=== PATIENT | female | born 1970 | race Caucasian/White ===

== ENCOUNTER 2017-10-04 23:54 | Observation (INO) | payer BC ==
[2017-10-05] MEDS ORDERED: Famotidine 20 MG/2 ML SDV IVPUSH ONE (00:17)
[2017-10-05] MEDS ORDERED: Metoprolol Tartrate 5 MG/5 ML SDV IVPUSH ONE (00:17)
--- NOTE | 2017-10-05 00:17 | EDM.PDOC ---
ED HPI GENERAL MEDICAL PROBLEM - General Chief Complaint: General Stated Complaint: irregular heartbeat Time Seen by Provider: 10/05/17 00:10 Source of Information: Reports: Patient, Family (), Old Records ([facility] chart/EMR) History Limitations: Reports: No Limitations - History of Present Illness INITIAL COMMENTS - FREE TEXT/NARRATIVE: The patient was brought to the emergency room via private automobile by her for evaluation of intermittent heart flutter symptoms starting at about 15:00 hours yesterday afternoon. The patient denies any chest pain/pressure, dizziness, orthostasis, orthopnea, diaphoresis, paresthesias, recent decreased exercise tolerance, or any other anginal-type symptoms. She denies any recent excessive caffeine intake, use of OTC cold preparations, etc. No recent history of abdominal pain, heartburn, nausea, diarrhea, melena, gross hematochezia, or any food intolerance, including fatty foods, etc.. No history of gross hematuria , colic, or other UTI symptoms. The patient also denies any recent fever, cough , wheezing, dyspnea, etc.. No history of recent headaches, visual changes, diplopia, change in mental status, or other change in neurological status. She denies any pain or discomfort. 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 Denies: Allergic Rhinitis, Cataract, Glaucoma, Hard of Hearing, Macular Degeneration, Retinal Detachment Other HEENT History: Patient wears glasses and soft contact lenses. Cardiovascular History: Reports: None. Denies: Afib, Aneurysm, Arrhythmia, Blood Clots/VTE/DVT, CAD, Heart Murmur, High Cholesterol, Hypertension, Syncope Respiratory History: Reports: None. Denies: Asthma, Bronchitis, Recurrent, COPD , Intubation, Difficult, Intubation, Previous, PE, Pneumothorax, Sleep Apnea Gastrointestinal History: Reports: None. Denies: Celiac Disease, Cholelithiasis , Chronic Constipation, Chronic Diarrhea, Fecal Incontinence, GERD, GI Bleed, Hiatal Hernia, Inflammatory Bowel Disease, Irritable Bowel Syndrome, PUD Genitourinary History: Reports: None. 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 Borderline hypertension during one of her pregnancies. C-sections 2 secondary to failure to progress. Musculoskeletal History: Reports: Fracture, Other (See Below). Denies: Amputation, Arthritis, Back Pain, Chronic, Gout, Neck Pain, Chronic, Osteoarthritis, Osteoporosis, RA, SLE Other Musculoskeletal History: Comminuted left wrist fracture on 12/24/15 Neurological History: Reports: None. Denies: Cerebral Aneurysms, Concussion, CVA, Headaches, Chronic, Head Trauma, Migraines, MS, Parkinson's, Seizure, TIA Psychiatric History: Reports: None. Denies: Abuse, Victim of, ADD, ADHD, Addiction, Anxiety, Depression, Psych Hospitalization(s), PTSD, Suicide Attempt , Suicidal Ideation Endocrine/Metabolic History: Reports: None. Denies: Diabetes, Gestational, Diabetes, Type I, Diabetes, Type II, Diabetes Mellitus, Type 3c, Hypothyroidism , IDDM Hematologic History: Reports: None. Denies: Anemia, Blood Transfusion(s), Iron Deficiency Immunologic History: Reports: None. Denies: AIDS, HIV, SLE Oncologic (Cancer) History: Reports: None. Denies: Basal Cell Carcinoma, Cervix , Hodgkin's Lymphoma, Leukemia, Lymphoma, Malignant Melanoma, Non-Hodgkin's Lymphoma, Squamous Cell Carcinoma Dermatologic History: Reports: None. Denies: Eczema, Psoriasis - Infectious Disease History Infectious Disease History: Reports: Chicken Pox, Mononucleosis (At age 19), Other (See Below) (Rabies exposure on 07/09/12). Denies: C-Difficile, Measles, Meningitis, MRSA, Mumps, Pertussis (Whooping Cough), Rheumatic Fever, Rubella, Scarlet Fever, Shingles, VRE - Past Surgical History Head Surgeries/Procedures: Reports: None HEENT Surgical History: Reports: Oral Surgery, Other (See Below). Denies: Adenoidectomy, Eye Surgery, Laser Surgery, LASIK, Myringotomy w Tube(s), Naso- Sinus Surgery, Tonsillectomy Other HEENT Surgeries/Procedures: Teague teeth extraction 4 at age 19. Cardiovascular Surgical History: Reports: None. Denies: Varicose Respiratory Surgical History: Reports: None. Denies: Thoracentesis GI Surgical History: Reports: None. Denies: Appendectomy, Cholecystectomy, Colonoscopy, EGD, Hernia, Abdominal, Hernia, Inguinal, Hernia Repair/Other Female Surgical History: Reports: Breast Biopsy, Section, Other ( See Below). Denies: D&C, Tubal Ligation Other Female Surgeries/Procedures: C-sections 2 as above. Endocrine Surgical History: Reports: None. Denies: Thyroid Biopsy Neurological Surgical History: Reports: None. Denies: C-Spine, Discectomy, Laminectomy, Lumbar Spine, Sacral Spine, Spinal Fusion, Thoracic Spine, Vertebroplasty Musculoskeletal Surgical History: Reports: ORIF, Other (See Below). Denies: Arthroscopic Procedure, Carpal Tunnel, Ganglion Cyst, Joint Replacement, Shoulder Surgery Other Musculoskeletal Surgeries/Procedures:: ORIF of left wrist fracture on . Oncologic Surgical History: Reports: None Dermatological Surgical History: Reports: None - Past Imaging History Past Imaging History: Reports: Ultrasound (OB ultrasounds. Right upper quadrant ultrasound on 11/10/05.). Denies: Angiography, Stress Testing Social & Family History - Family History HEENT: Reports: Macular Degeneration, Other (See Below). Denies: Glaucoma, Retinal Detachment Other HEENT Family History: Paternal grandmother with macular degeneration. Cardiac: Reports: Aneurysm, High Cholesterol, Hypertension, Other (See Below). Denies: Afib, Arrhythmia, Blood Clots/VTE/DVT, Bypass, CAD, Heart Failure, NM, PVD/COD, Stent, Syncope Other Cardiac Family History: Father with hypertension and hyperlipidemia. Paternal grandfather with cerebral aneurysm. Respiratory: Reports: None. Denies: Asthma, COPD, PE, Pneumothorax, Sleep Apnea GI: Reports: Celiac Disease, Other (See Below). Denies: Cholelithiasis, Colon Polyps, GERD, GI bleed, Inflammatory Bowel Disease, Irritable Bowel Syndrome, PUD Other GI Family History: Maternal half aunts 2 with celiac disease. : Reports: None. Denies: Renal Calculus, Renal Disease/Insufficiency OBGYN: Reports: None. Denies: Endometriosis, Recurrent Spontaneous Musculoskeletal: Reports: None. Denies: Gout, RA, SLE Neurological: Reports: Cerebral Aneurysms, CVA, Other (See Below). Denies: Alzheimers Disease, Dementia, Migraines, MS, Parkinson's, Seizure, TIA Other Neurological Family History: Paternal grandfather with hemorrhagic CVA secondary to cerebral aneurysm in his 70s. Psychiatric: Denies: Abuse, Victim of, ADD, ADHD, Anxiety, Depression, Psych Hospitalization(s), PTSD, Suicide Attempt Endocrine/Metabolic: Reports: None. Denies: Diabetes, Type I, Diabetes, type II , Diabetes Mellitus, Type 3c, Hypothyroidism, IDDM Hematologic: Reports: None, Anemia. Denies: SLE Immunologic: Reports: None. Denies: AIDS, HIV, SLE Dermatologic: Reports: None. Denies: Eczema, Psoriasis Oncologic: Reports: None. Denies: Breast, Cervix, Colon, Hodgkin's Lymphoma, Leukemia, Lymphoma, Non-Hodgkin's Lymphoma, Ovarian, Skin, Uterine - Tobacco Use Smoking Status *Q: Never Smoker Tobacco Use Within Last Twelve Months: No Used Tobacco, but Quit: No Smoking Cessation Information Provided To Patient: No Second Hand Smoke Exposure: No Second Hand Smoke Education Provided: No - Caffeine Use Caffeine Use: Reports: Coffee (4 cups per day). Denies: Energy Drinks, Soda, Tea - Alcohol Use Alcohol Use History: Yes Days Per Week of Alcohol Use: 1 Number of Drinks Per Day: 2 Number of Drinks Per Day Comment: Usually beer. No previous DWIs, problems with alcohol abuse, etc. Total Drinks Per Week: 2 Alcohol Use in Last Twelve Months: Yes Alcohol Use Frequency: Weekly - Recreational Drug Use Recreational Drug Use: No Drug Use in Last 12 Months: No Recreational Drug Type: Denies: Amphetamines (Speed), Cocaine, Flunitrazepam, Heroin, Inhalants (Glues, Solvents, Aerosols), LSD (Acid), Marijuana/Hashish, Methamphetamine, Morphine, Oxycodone - Living Situation & Occupation Living situation: Reports: (1994. 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 ED EXAM, GENERAL - Physical Exam Exam: See Below Exam Limited By: No Limitations General Appearance: Alert, WD/WN, No Apparent Distress Eye Exam: Bilateral Eye: EOMI, Normal Inspection (No nystagmus. Patient wearing glasses) Ears: Normal External Exam, Normal Canal, Hearing Grossly Normal, Normal TMs Nose: Normal Inspection, Normal Mucosa, No Blood Throat/Mouth: Normal Inspection, Normal Lips, Normal Teeth, Normal Gums, Normal Oropharynx, Normal Voice, No Airway Compromise. No: Dysphagia, Perioral Cyanosis Neck: Normal Inspection, Supple, Non-Tender, Full Range of Motion. No: Lymphadenopathy (L), Lymphadenopathy (R), Thyromegaly Respiratory/Chest: No Respiratory Distress, Lungs Clear, Normal Breath Sounds, No Accessory Muscle Use, Chest Non-Tender. No: Pleural Rub, Retractions Cardiovascular: Normal Peripheral Pulses, No Edema, No Gallop, No JVD, No Murmur , No Rub, Tachycardia, Extra Beats. No: Gallop/S3, Gallop/S4 Peripheral Pulses: 2+: Radial (L), Radial (R), Dorsalis Pedis (L), Dorsalis Pedis (R) GI/Abdominal: Normal Bowel Sounds, Soft, Non-Tender, No Organomegaly, No Distention, No Abnormal Bruit, No Mass, Pelvis Stable. No: Guarding (Female) Exam: Deferred Rectal (Female) Exam: Deferred Back Exam: Normal Inspection, Full Range of Motion. No: CVA Tenderness (L), CVA Tenderness (R), Muscle Spasm Extremities: Normal Inspection, Normal Range of Motion, Non-Tender, No Pedal Edema, Normal Capillary Refill. No: Ryan's Sign Neurological: Alert, Oriented, CN II-XII Intact, Normal Cognition, Normal Gait, Normal Reflexes (Negative Babinski's), No Motor/Sensory Deficits Psychiatric: Normal Affect, Normal Mood Skin Exam: Warm, Dry, Intact, Normal Color, No Rash. No: Diaphoretic Lymphatic: No Adenopathy EKG INTERPRETATION EKG Date: 10/05/17 Time: 00:22 Rhythm: Other (Junctional rhythm with occasional PACs) Rate (Beats/Min): 124 [place]: Normal (Left cardiac axis) P-Wave: Variable QRS: Normal (QRS interval of 0.09 seconds) ST-T: Other (T-wave inversion in lead V1 with otherwise nonspecific ST changes) QT: Normal MA/PQ Interval: Variable Comparison: NA - No Prior EKG EKG Interpretation Comments: 1. Junctional rhythm with tachycardia 2. PACs 3. No acute ischemic changes Course - Vital Signs Last Recorded V/S: Last Vital Signs Temp 36.8 C 10/05/17 00:30 Pulse 76 10/05/17 00:40 Resp 16 10/05/17 00:40 BP 134/80 10/05/17 00:40 Pulse Ox 99 10/05/17 00:40 Vital Signs - 24 hr 10/05/17 10/05/17 10/05/17 00:00 00:15 00:25 Temperature [ 37.2 C Temporal] Pulse, 116 H Peripheral Pulse, 108 H 120 H Peripheral [ Right Pulse Oximetry] Respiratory 18 18 Rate Blood Pressure 104/67 Blood Pressure 151/92 H 104/67 [Left Upper Arm ] O2 Sat by Pulse 100 99 Oximetry 10/05/17 10/05/17 10/05/17 00:30 00:40 01:03 Temperature [ 36.8 C Temporal] Pulse, 79 Peripheral Pulse, 75 76 Peripheral [ Right Pulse Oximetry] Respiratory 16 16 Rate Blood Pressure 130/79 Blood Pressure 145/95 H 134/80 [Left Upper Arm ] O2 Sat by Pulse 100 99 Oximetry - Orders/Labs/Meds Orders: Active Orders 24 hr Category Date Time Status Cardiac Monitoring [RC] . DIRECTED Care 10/05/17 00:17 Active EKG Documentation Completion [RC] ASDIRECTED Care 10/05/17 00:17 Active Oxygen Therapy, ED [RC] PRN Care 10/05/17 00:17 Active Peripheral IV Care [RC] . DIRECTED Care 10/05/17 00:17 Active Pulse Oximetry [RC] PRN Care 10/05/17 00:17 Active Up With Assistance [RC] PFP Care 10/05/17 00:17 Active Vital Signs [RC] PFP Care 10/05/17 00:17 Active Nothing per Oral Now Diet [DIET] Diet 10/05/17 Breakfast Active Chest 1V Frontal [CR] Stat Exams 10/05/17 00:17 Taken Metoprolol Succinate [Toprol XL] Med 10/05/17 00:59 Once 25 mg PO ONETIME ONE Sodium Chloride 0.9% [Saline Flush] Med 10/05/17 00:17 Active 10 ml FLUSH ASDIRECTED PRN Obtain Past Medical Record [OM.PC] Urgent Oth 10/05/17 00:17 Active Peripheral IV Insertion Adult [OM.PC] Stat Oth 10/05/17 00:17 Ordered Resuscitation Status Stat Resus Stat 10/05/17 00:17 Ordered Medication Orders Metoprolol Succinate (Toprol Xl) 25 mg PO ONETIME ONE Stop: 10/05/17 01:00 Sodium Chloride (Saline Flush) 10 ml FLUSH ASDIRECTED PRN PRN Reason: Keep Vein Open Last Admin: 10/05/17 00:26 Dose: 10 ml Labs: Laboratory Tests 10/05/17 10/05/17 10/05/17 Range/Units 00:13 00:13 00:13 WBC 9.2 (4.0-10.2) K/uL RBC 4.83 (3.77-5.09) M/uL Hgb 14.5 (11.7-15.5) g/dL Hct 42.6 (34.0-46.0) % MCV 88.2 (84.0-98.0) fL MCH 30.0 (28.2-33.3) pg MCHC 34.0 (31.7-36.0) g/dL RDW 13.2 (11.2-14.1) % Plt Count 204 (150-350) K/uL Neut % (Auto) 41.7 L (45.0-80.0) % Lymph % (Auto) 49.9 (10.0-50.0) % Wheeler % (Auto) 7.0 (2.0-14.0) % Eos % (Auto) 1.2 (0.0-5.0) % Baso % (Auto) 0.2 (0.0-2.0) % Neut # (Auto) 3.82 (1.40-7.00) K/uL Lymph # (Auto) 4.58 H (0.50-3.50) K/uL Wheeler # (Auto) 0.64 (0.00-1.00) K/uL Eos # (Auto) 0.11 (0.00-0.50) K/uL Baso # (Auto) 0.02 (0.00-0.20) K/uL PT 9.8 (9.8-11.7) SEC INR 0.9 APTT 24.7 (22.1-29.8) SEC D-Dimer, Quantitative < 100 (0-400) ng/mL Sodium (136-145) mmol/L Potassium (3.5-5.1) mmol/L Chloride (98-107) mmol/L Carbon Dioxide (21.0-32.0) mmol/L BUN (7-18) mg/dL Creatinine (0.51-1.17) mg/dL Est Cr Clr Drug Dosing mL/min Estimated GFR (MDRD) mL/min Glucose (74-106) mg/dL Lactic Acid (0.4-2.0) mmol/L Uric Acid (2.6-7.2) mg/dL Calcium (8.5-10.1) mg/dL Magnesium (1.8-2.4) mg/dL Total Bilirubin (0.2-1.0) mg/dL AST (15-37) U/L ALT (12-78) U/L Alkaline Phosphatase (46-116) IU/L Creatine Kinase (26-308) U/L Creatine Kinase Index (0.0-2.5) % CK-MB (CK-2) (0.00-3.60) ng/mL Troponin I (0.000-0.056) ng/mL NT-Pro-B Natriuret Pep (0-125) pg/mL Total Protein (6.4-8.2) g/dL Albumin (3.4-5.0) g/dL TSH, Ultra Sensitive (0.358-3.740) mIU/mL HCG, Qual (NEGATIVE) 10/05/17 10/05/17 10/05/17 Range/Units 00:13 00:13 00:13 WBC (4.0-10.2) K/uL RBC (3.77-5.09) M/uL Hgb (11.7-15.5) g/dL Hct (34.0-46.0) % MCV (84.0-98.0) fL MCH (28.2-33.3) pg MCHC (31.7-36.0) g/dL RDW (11.2-14.1) % Plt Count (150-350) K/uL Neut % (Auto) (45.0-80.0) % Lymph % (Auto) (10.0-50.0) % Wheeler % (Auto) (2.0-14.0) % Eos % (Auto) (0.0-5.0) % Baso % (Auto) (0.0-2.0) % Neut # (Auto) (1.40-7.00) K/uL Lymph # (Auto) (0.50-3.50) K/uL Wheeler # (Auto) (0.00-1.00) K/uL Eos # (Auto) (0.00-0.50) K/uL Baso # (Auto) (0.00-0.20) K/uL PT (9.8-11.7) SEC INR APTT (22.1-29.8) SEC D-Dimer, Quantitative (0-400) ng/mL Sodium 138 (136-145) mmol/L Potassium 3.2 L (3.5-5.1) mmol/L Chloride 101 (98-107) mmol/L Carbon Dioxide 27.5 (21.0-32.0) mmol/L BUN 19 H (7-18) mg/dL Creatinine 0.90 (0.51-1.17) mg/dL Est Cr Clr Drug Dosing 79.63 mL/min Estimated GFR (MDRD) > 60 mL/min Glucose 102 (74-106) mg/dL Lactic Acid 0.9 (0.4-2.0) mmol/L Uric Acid 3.7 (2.6-7.2) mg/dL Calcium 9.0 (8.5-10.1) mg/dL Magnesium 1.9 (1.8-2.4) mg/dL Total Bilirubin 0.6 (0.2-1.0) mg/dL AST 12 L (15-37) U/L ALT 20 (12-78) U/L Alkaline Phosphatase 61 (46-116) IU/L Creatine Kinase 122 (26-308) U/L Creatine Kinase Index 0.8 (0.0-2.5) % CK-MB (CK-2) 1.00 (0.00-3.60) ng/mL Troponin I 0.000 (0.000-0.056) ng/mL NT-Pro-B Natriuret Pep 46 (0-125) pg/mL Total Protein 7.8 (6.4-8.2) g/dL Albumin 3.7 (3.4-5.0) g/dL TSH, Ultra Sensitive 6.787 H (0.358-3.740) mIU/mL HCG, Qual Negative (NEGATIVE) Meds: Medications Generic Name Dose Route Start Last Admin Trade Name Freq PRN Reason Stop Dose Admin Metoprolol Succinate 25 mg 10/05/17 00:59 Toprol Xl PO 10/05/17 01:00 ONETIME ONE Sodium Chloride 10 ml 10/05/17 00:17 10/05/17 00:26 Saline Flush FLUSH 10 ml ASDIRECTED PRN Administration Keep Vein Open Discontinued Medications Generic Name Dose Route Start Last Admin Trade Name Freq PRN Reason Stop Dose Admin Famotidine 40 mg 10/05/17 00:17 10/05/17 00:24 Pepcid IVPUSH 10/05/17 00:18 40 mg ONETIME ONE Administration Metoprolol Tartrate 5 mg 10/05/17 00:17 10/05/17 00:25 Lopressor IVPUSH 10/05/17 00:18 5 mg ONETIME ONE Administration - Radiology Interpretation Free Text/Narrative:: child monitor showed initial vertical tachycardia with heart rates ranging in the 110s to 150s consistent with frequent PACs and threatening PSVT and/or brief atrial fibrillation. No PVCs or other arrhythmia noted. Chest x-ray, portable, is normal with exception of mild prominence of the proximal aortic arch with no cardiomegaly, CHF, pulmonary infiltrates, pneumothorax, etc. Departure - Departure Time of Disposition: 01:25 Disposition: Refer to Observation Condition: Good Clinical Impression: Tachycardia, Hypothyroidism (acquired), Hypokalemia - Discharge Information *PRESCRIPTION DRUG MONITORING PROGRAM REVIEWED*: Not Applicable *COPY OF PRESCRIPTION DRUG MONITORING REPORT IN PATIENT DANIEL: Not Applicable Referrals: Taylor Stout PA-C [Primary Care Provider] - Forms: ED Department Discharge Care Plan Goals: See plan - Problem List & Annotations (1) Tachycardia SNOMED Code(s): 0438747 Code(s): R00.0 - TACHYCARDIA, UNSPECIFIED Status: Acute Priority: High Onset Date: 10/04/17 Annotation/Comment:: PACs, PSVT, with brief possible threatening atrial fibrillation with overall good response to IV Lopressor therapy. No chest pain or anginal type symptoms with chest pain protocol not initiated in the emergency room. Initiate standard rule out NM orders. Cardiology consultation depending on her clinical course. Consider event monitor , Cardiolite stress test, etc. on an outpatient basis. Glycosylated hemoglobin and lipid panel to be conducted later this morning. (2) Hypokalemia SNOMED Code(s): 34826001 Code(s): E87.6 - HYPOKALEMIA Status: Acute Priority: Medium Onset Date : 10/05/17 Annotation/Comment:: No recent history of diarrhea, nausea, or medications as etiology for her hypokalemia. Initiate low-dose potassium supplement for now. (3) Hypothyroidism (acquired) SNOMED Code(s): 958376201 Code(s): E03.9 - HYPOTHYROIDISM, UNSPECIFIED Status: Acute Priority: High Onset Date: 10/05/17 Annotation/Comment:: Newly diagnosed with no current thyroid type symptoms. Initiate Synthroid therapy. TSH should be repeated in 4 weeks. - Problem List Review Problem List Initiated/Reviewed/Updated: Yes - My Orders Last 24 Hours: My Active Orders 10/05/17 00:17 Cardiac Monitoring [RC] . DIRECTED EKG Documentation Completion [RC] ASDIRECTED Oxygen Therapy, ED [RC] PRN Peripheral IV Care [RC] . DIRECTED Pulse Oximetry [RC] PRN Up With Assistance [RC] PFP Vital Signs [RC] PFP Chest 1V Frontal [CR] Stat Sodium Chloride 0.9% [Saline Flush] 10 ml FLUSH ASDIRECTED PRN Obtain Past Medical Record [OM.PC] Urgent Peripheral IV Insertion Adult [OM.PC] Stat Resuscitation Status Stat 10/05/17 00:59 Metoprolol Succinate [Toprol XL] 25 mg PO ONETIME ONE 10/05/17 Breakfast Nothing per Oral Now Diet [DIET] - Assessment/Plan Admission H&P: Please use this note as an admission H&P Last 24 Hours: My Active Orders 10/05/17 00:17 Cardiac Monitoring [RC] . DIRECTED EKG Documentation Completion [RC] ASDIRECTED Oxygen Therapy, ED [RC] PRN Peripheral IV Care [RC] . DIRECTED Pulse Oximetry [RC] PRN Up With Assistance [RC] PFP Vital Signs [RC] PFP Chest 1V Frontal [CR] Stat Sodium Chloride 0.9% [Saline Flush] 10 ml FLUSH ASDIRECTED PRN Obtain Past Medical Record [OM.PC] Urgent Peripheral IV Insertion Adult [OM.PC] Stat Resuscitation Status Stat 10/05/17 00:59 Metoprolol Succinate [Toprol XL] 25 mg PO ONETIME ONE 10/05/17 Breakfast Nothing per Oral Now Diet [DIET] Assessment:: As above Plan: As above. Extensive precautions were given to the patient and her , who is in agreement with the treatment plan. The patient's condition is stable enough for observation status and general supervision. Chilo mukherjee physician assumes care in the a.m.
[2017-10-05] MEDS: Sodium Chloride 0.9% 10 ML Syringe FLUSH PRN ×2 (00:26→10:09)
[2017-10-05 00:47] LABS: CHLORIDE,CL 101 mmol/L (98-107); SODIUM,NA 138 mmol/L (136-145)
[2017-10-05] MEDS ORDERED: Metoprolol Succinate 25 MG Tab.ER PO ONE ×2 (00:59→12:32)
[2017-10-05] MEDS ORDERED: Sodium Chloride 0.9% 10 ML Syringe FLUSH PRN (01:37)
[2017-10-05] MEDS ORDERED: Acetaminophen 325 MG Tab PO PRN (01:37)
[2017-10-05] MEDS ORDERED: Temazepam 15 MG Cap PO PRN (01:37)
[2017-10-05] MEDS ORDERED: Levothyroxine 50 MCG Tab PO SCH (07:30)
[2017-10-05] MEDS ORDERED: Potassium Chloride 20 MEQ Tab.ER PO SCH (08:00)
[2017-10-05 12:42] VITALS: BP 127/77
--- NOTE | 2017-10-05 12:42 | PCM.DCSUM1 ---
Discharge Summary - Hospital Course Brief History: Patient was admitted for the evaluation of rapid heart beat. Diagnosis: Stroke: No - Discharge Data Discharge Date: 10/05/17 Discharge Disposition: Home, Self-Care 01 Condition: Good - Discharge Diagnosis/Problem(s) (1) Tachycardia SNOMED Code(s): 1183641 ICD Code: R00.0 - TACHYCARDIA, UNSPECIFIED Status: Acute Priority: High Current Visit: No Onset Date: 10/04/17 Problem Details: Chest pain protocol initiated in ER. Serial labs performed, unremarkable overall. Pain- free. No SOB. Still elevateds to 130s/140s at times when ambulating. She can feel that her heart is going more quickly, but otherwise these episodes do not bother her. Intermittent PACs and PSVT noted on monitor at these times. Call placed to Cardiology. Discussed patient's history/presentation/and hospital course with . Copies of patient's monitor strips faxed to [facility] for review by . He felt that we should increase her Toprol XL dose to 50mg daily. OK to follow up with Cardiology at [facility]. He is aware that patient wants to be discharged today as she needs [place]. He did not recommend against discharge and felt that overall patient should be ok based on current EKGs that he reviewed. (2) Hypothyroidism (acquired) SNOMED Code(s): 583369211 ICD Code: E03.9 - HYPOTHYROIDISM, UNSPECIFIED Status: Acute Priority: High Current Visit: No Onset Date: 10/05/17 Problem Details: Newly diagnosed with no current thyroid type symptoms. Initiate Synthroid therapy. TSH should be repeated in 4 weeks. (3) Hypokalemia SNOMED Code(s): 51557700 ICD Code: E87.6 - HYPOKALEMIA Status: Acute Priority: Medium Current Visit: No Onset Date: 10/05/17 Problem Details: K was 4.2 today. Will d/c supplement at discharge and have patient get level rechecked within the next 7- 10 days. - Patient Summary/Data Complications: None Hospital Course: Patient continued to have spells of PACs/PSVT when she would be ambulatory. BP remained stable. Patient felt fine otherwise. Serial cardiac labs unremarkable. She would like to be discharged home as she has [place]. Pros/cons of discharge reviewed with patient. She still wishes to be discharged. She was agreeable with our discussing her presentation and hospital course with [facility]. Copies of rhythm strips faxed. reviewed these and feels that it is OK to let her be discharged with followup at Cardiology. He recommended increasing Toprol dose to 50mg. - Patient Instructions Diet: Usual Diet as Tolerated Activity: As Tolerated, No Strenuous Activities Driving: May Drive Today Showering/Bathing: May Shower Other/Special Instructions: Follow up at local clinic next week for recheck. Have Potassium rechecked at that time. You will need to have Thyroid recheck in 4 weeks. Follow up at ER as needed if you develop sudden/worsening problems such as rapid heart rate, shortness of breath, chest pain. - Discharge Plan *PRESCRIPTION DRUG MONITORING PROGRAM REVIEWED*: Not Applicable *COPY OF PRESCRIPTION DRUG MONITORING REPORT IN PATIENT DANIEL: Not Applicable Prescriptions/Med Rec: Levothyroxine [Synthroid] 50 mcg PO ACBREAKFAST #30 tablet Metoprolol Succinate [Toprol XL 50mg] 50 mg PO BEDTIME #60 tab.er Home Medications: Home Meds Fish Oil/DHA/EPA [Fish Oil 1,200 MG] 1,200 mg PO DAILY 12/24/15 [History] Multivitamin [Multi-Vitamin Daily] 1 tab PO DAILY 12/24/15 [History] Cholecalciferol (Vitamin D3) [Vitamin D3] 1,000 units PO DAILY 10/05/17 [History ] Cyanocobalamin (Vitamin B12) [Vitamin B12] 1,000 mcg PO DAILY 10/05/17 [History] Levothyroxine [Synthroid] 50 mcg PO ACBREAKFAST #30 tablet 10/05/17 [Rx] Metoprolol Succinate [Toprol XL 50mg] 50 mg PO BEDTIME #60 tab.er 10/05/17 [Rx] Patient Handouts: Levothyroxine tablets, Metoprolol extended-release tablets, Hypokalemia, Hypothyroidism Forms: ED Department Discharge Referrals: Taylor Stout PA-C [Primary Care Provider] - - Discharge Summary/Plan Comment DC Time >30 min.: No - General Info Date of Service: 10/05/17 Admission Dx/Problem (Free Text: Rapid heart beat Functional Status: Reports: Pain Controlled, Tolerating Diet, Ambulating, Urinating. Denies: New Symptoms - Review of Systems General: Reports: No Symptoms HEENT: Reports: No Symptoms Pulmonary: Reports: No Symptoms Cardiovascular: Reports: Palpitations. Denies: Chest Pain, Dyspnea on Exertion , Orthopnea, Edema, Lightheadedness Gastrointestinal: Reports: No Symptoms Genitourinary: Reports: No Symptoms Musculoskeletal: Reports: No Symptoms Skin: Reports: No Symptoms Neurological: Reports: No Symptoms Psychiatric: Reports: No Symptoms - Patient Data Vitals - Most Recent: Last Vital Signs Temp 36.9 C 10/05/17 02:00 Pulse 59 L 10/05/17 06:00 Resp 16 10/05/17 06:00 BP 109/77 10/05/17 06:00 Pulse Ox 97 10/05/17 06:00 Weight - Most Recent: 74.48 kg I&O - Last 24 hours: Intake & Output 10/04/17 10/05/17 10/05/17 22:59 06:59 14:59 Intake Total 0 Output Total 800 Balance -800 Lab Results - Last 24 hrs: Laboratory Results - last 24 hr 10/05/17 10/05/17 10/05/17 Range/Units 00:13 00:13 00:13 WBC 9.2 (4.0-10.2) K/uL RBC 4.83 (3.77-5.09) M/uL Hgb 14.5 (11.7-15.5) g/dL Hct 42.6 (34.0-46.0) % MCV 88.2 (84.0-98.0) fL MCH 30.0 (28.2-33.3) pg MCHC 34.0 (31.7-36.0) g/dL RDW 13.2 (11.2-14.1) % Plt Count 204 (150-350) K/uL Neut % (Auto) 41.7 L (45.0-80.0) % Lymph % (Auto) 49.9 (10.0-50.0) % [place] % (Auto) 7.0 (2.0-14.0) % Eos % (Auto) 1.2 (0.0-5.0) % Baso % (Auto) 0.2 (0.0-2.0) % Neut # (Auto) 3.82 (1.40-7.00) K/uL Lymph # (Auto) 4.58 H (0.50-3.50) K/uL [place] # (Auto) 0.64 (0.00-1.00) K/uL Eos # (Auto) 0.11 (0.00-0.50) K/uL Baso # (Auto) 0.02 (0.00-0.20) K/uL PT 9.8 (9.8-11.7) SEC INR 0.9 APTT 24.7 (22.1-29.8) SEC D-Dimer, Quantitative < 100 (0-400) ng/mL Sodium (136-145) mmol/L Potassium (3.5-5.1) mmol/L Chloride (98-107) mmol/L Carbon Dioxide (21.0-32.0) mmol/L BUN (7-18) mg/dL Creatinine (0.51-1.17) mg/dL Est Cr Clr Drug Dosing mL/min Estimated GFR (MDRD) mL/min Glucose (74-106) mg/dL Hemoglobin A1c (4.3-5.7) % Lactic Acid (0.4-2.0) mmol/L Uric Acid (2.6-7.2) mg/dL Calcium (8.5-10.1) mg/dL Magnesium (1.8-2.4) mg/dL Total Bilirubin (0.2-1.0) mg/dL AST (15-37) U/L ALT (12-78) U/L Alkaline Phosphatase (46-116) IU/L Creatine Kinase (26-308) U/L Creatine Kinase Index (0.0-2.5) % CK-MB (CK-2) (0.00-3.60) ng/mL Troponin I (0.000-0.056) ng/mL NT-Pro-B Natriuret Pep (0-125) pg/mL Total Protein (6.4-8.2) g/dL Albumin (3.4-5.0) g/dL Triglycerides (30-150) mg/dL Cholesterol (100-200) mg/dL LDL Cholesterol, Calc (0-100) mg/dL HDL Cholesterol (40-60) mg/dL TSH, Ultra Sensitive (0.358-3.740) mIU/mL HCG, Qual (NEGATIVE) 10/05/17 10/05/17 10/05/17 Range/Units 00:13 00:13 00:13 WBC (4.0-10.2) K/uL RBC (3.77-5.09) M/uL Hgb (11.7-15.5) g/dL Hct (34.0-46.0) % MCV (84.0-98.0) fL MCH (28.2-33.3) pg MCHC (31.7-36.0) g/dL RDW (11.2-14.1) % Plt Count (150-350) K/uL Neut % (Auto) (45.0-80.0) % Lymph % (Auto) (10.0-50.0) % [place] % (Auto) (2.0-14.0) % Eos % (Auto) (0.0-5.0) % Baso % (Auto) (0.0-2.0) % Neut # (Auto) (1.40-7.00) K/uL Lymph # (Auto) (0.50-3.50) K/uL [place] # (Auto) (0.00-1.00) K/uL Eos # (Auto) (0.00-0.50) K/uL Baso # (Auto) (0.00-0.20) K/uL PT (9.8-11.7) SEC INR APTT (22.1-29.8) SEC D-Dimer, Quantitative (0-400) ng/mL Sodium 138 (136-145) mmol/L Potassium 3.2 L (3.5-5.1) mmol/L Chloride 101 (98-107) mmol/L Carbon Dioxide 27.5 (21.0-32.0) mmol/L BUN 19 H (7-18) mg/dL Creatinine 0.90 (0.51-1.17) mg/dL Est Cr Clr Drug Dosing 79.63 mL/min Estimated GFR (MDRD) > 60 mL/min Glucose 102 (74-106) mg/dL Hemoglobin A1c (4.3-5.7) % Lactic Acid 0.9 (0.4-2.0) mmol/L Uric Acid 3.7 (2.6-7.2) mg/dL Calcium 9.0 (8.5-10.1) mg/dL Magnesium 1.9 (1.8-2.4) mg/dL Total Bilirubin 0.6 (0.2-1.0) mg/dL AST 12 L (15-37) U/L ALT 20 (12-78) U/L Alkaline Phosphatase 61 (46-116) IU/L Creatine Kinase 122 (26-308) U/L Creatine Kinase Index 0.8 (0.0-2.5) % CK-MB (CK-2) 1.00 (0.00-3.60) ng/mL Troponin I 0.000 (0.000-0.056) ng/mL NT-Pro-B Natriuret Pep 46 (0-125) pg/mL Total Protein 7.8 (6.4-8.2) g/dL Albumin 3.7 (3.4-5.0) g/dL Triglycerides (30-150) mg/dL Cholesterol (100-200) mg/dL LDL Cholesterol, Calc (0-100) mg/dL HDL Cholesterol (40-60) mg/dL TSH, Ultra Sensitive 6.787 H (0.358-3.740) mIU/mL HCG, Qual Negative (NEGATIVE) 10/05/17 10/05/17 10/05/17 Range/Units 06:57 06:57 11:35 WBC (4.0-10.2) K/uL RBC (3.77-5.09) M/uL Hgb (11.7-15.5) g/dL Hct (34.0-46.0) % MCV (84.0-98.0) fL MCH (28.2-33.3) pg MCHC (31.7-36.0) g/dL RDW (11.2-14.1) % Plt Count (150-350) K/uL Neut % (Auto) (45.0-80.0) % Lymph % (Auto) (10.0-50.0) % [place] % (Auto) (2.0-14.0) % Eos % (Auto) (0.0-5.0) % Baso % (Auto) (0.0-2.0) % Neut # (Auto) (1.40-7.00) K/uL Lymph # (Auto) (0.50-3.50) K/uL [place] # (Auto) (0.00-1.00) K/uL Eos # (Auto) (0.00-0.50) K/uL Baso # (Auto) (0.00-0.20) K/uL PT (9.8-11.7) SEC INR APTT (22.1-29.8) SEC D-Dimer, Quantitative (0-400) ng/mL Sodium (136-145) mmol/L Potassium (3.5-5.1) mmol/L Chloride (98-107) mmol/L Carbon Dioxide (21.0-32.0) mmol/L BUN (7-18) mg/dL Creatinine (0.51-1.17) mg/dL Est Cr Clr Drug Dosing mL/min Estimated GFR (MDRD) mL/min Glucose (74-106) mg/dL Hemoglobin A1c 5.6 (4.3-5.7) % Lactic Acid (0.4-2.0) mmol/L Uric Acid (2.6-7.2) mg/dL Calcium (8.5-10.1) mg/dL Magnesium (1.8-2.4) mg/dL Total Bilirubin (0.2-1.0) mg/dL AST (15-37) U/L ALT (12-78) U/L Alkaline Phosphatase (46-116) IU/L Creatine Kinase 98 93 (26-308) U/L Creatine Kinase Index 0.7 0.8 (0.0-2.5) % CK-MB (CK-2) 0.70 0.70 (0.00-3.60) ng/mL Troponin I 0.000 0.000 (0.000-0.056) ng/mL NT-Pro-B Natriuret Pep (0-125) pg/mL Total Protein (6.4-8.2) g/dL Albumin (3.4-5.0) g/dL Triglycerides 36 (30-150) mg/dL Cholesterol 259 H (100-200) mg/dL LDL Cholesterol, Calc 146 H (0-100) mg/dL HDL Cholesterol 106 H (40-60) mg/dL TSH, Ultra Sensitive (0.358-3.740) mIU/mL HCG, Qual (NEGATIVE) RANDY Results - Last 24 hrs: Microbiology 10/05/17 09:42 Stool Occult Blood (RANDY) - Final Stool / Feces NEGATIVE OCCULT BLOOD Med Orders - Current: Current Medications Acetaminophen (Tylenol) 650 mg PO Q4H PRN PRN Reason: Pain Levothyroxine Sodium (Synthroid) 50 mcg PO ACBREAKFAST [facility] Last Admin: 10/05/17 08:22 Dose: 50 mcg Metoprolol Succinate (Toprol Xl) 25 mg PO QPM [facility] Potassium Chloride (Klor-Con M20) 20 meq PO BID HARRY Last Admin: 10/05/17 08:22 Dose: 20 meq Sodium Chloride (Saline Flush) 10 ml FLUSH ASDIRECTED PRN PRN Reason: Keep Vein Open Last Admin: 10/05/17 10:09 Dose: 10 ml Sodium Chloride (Saline Flush) 10 ml FLUSH Q12HR PRN PRN Reason: Keep Vein Open Temazepam (Restoril) 15 mg PO BEDTIME PRN PRN Reason: Insomnia Discontinued Medications Famotidine (Pepcid) 40 mg IVPUSH ONETIME ONE Stop: 10/05/17 00:18 Last Admin: 10/05/17 00:24 Dose: 40 mg Magnesium Sulfate/Dextrose (Magnesium 1 Gm In D5w 100 Ml) 1 gm IV ONETIME ONE Stop: 10/05/17 09:54 Last Admin: 10/05/17 10:09 Dose: 1 gm Metoprolol Succinate (Toprol Xl) 25 mg PO ONETIME ONE Stop: 10/05/17 01:00 Last Admin: 10/05/17 01:03 Dose: 25 mg Metoprolol Succinate (Toprol Xl) 25 mg PO ONETIME ONE Stop: 10/05/17 12:33 Metoprolol Tartrate (Lopressor) 5 mg IVPUSH ONETIME ONE Stop: 10/05/17 00:18 Last Admin: 10/05/17 00:25 Dose: 5 mg - Exam General: Reports: Alert, Oriented, Cooperative, No Acute Distress HEENT: Reports: Pupils Equal, Pupils Reactive, EOMI, Mucous Membr. Moist/[employer] Neck: Reports: Supple Lungs: Reports: Clear to Auscultation, Normal Respiratory Effort Cardiovascular: Reports: Regular Rate, Regular Rhythm GI/Abdominal Exam: Normal Bowel Sounds, Soft, Non-Tender, No Distention (Female) Exam: Deferred Rectal (Female) Exam: Deferred Back Exam: Denies: CVA Tenderness (L), CVA Tenderness (R) Extremities: Normal Inspection, Normal Capillary Refill Skin: Reports: Warm, Dry Neurological: Reports: No New Focal Deficit Psy/Mental Status: Reports: Alert, Normal Affect, Normal Mood EKG INTERPRETATION EKG Date: 10/05/17 Time: 07:16 Rhythm: NSR Rate (Beats/Min): 69 [place]: Normal P-Wave: Present QRS: Other (incomplete RBBB) ST-T: Normal QT: Normal Comparison: Change From Previous EKG (improved rate)
[2017-10-05] MEDS ORDERED: Metoprolol Succinate 25 MG Tab.ER PO SCH (18:00)
== END 2017-10-05 13:35 | disposition home or self-care (01) ==
LOC: LL.ED 23:54 → LL.MS 10-05 01:27 → UNDOADMOB 10-05 01:27 → LL.MS 10-05 01:32
PROVIDERS: ADMIT Family Medicine; ATTEND Emergency Medicine
DX: R00.0 Tachycardia, unspecified (principal); E03.9 Hypothyroidism, unspecified; E87.6 Hypokalemia; Z79.899 Other long term (current) drug therapy; Z82.49 Family history of ischemic heart disease and other diseases of the circulatory system
CPT/HCPCS: 36415; 71045; 80053; 80061; 82272; 82550; 82553; 83036; 83605; 83735; 83880; 84132; 84443; 84484; 84550; 84703; 85025; 85379; 85610; 85730; 87338; 93005; 96365; 96374; 96375; 99285; A9270-GY; G0378; J3475; J3490; J7050